=== PATIENT | female | born 1980 | race Caucasian/White ===

== ENCOUNTER 2017-06-06 06:46 | Day surgery (SDC) | payer MEDICAID ==
[2017-06-06] VITALS (12 sets, daily range): BP systolic 105–122; BP diastolic 65–78; PULSE 80–99; RESP 13–24; Ht 157.5 cm; Wt 75.0 kg
[~2017-06-06] VITALS: Ht 157.5 cm; Wt 75.0 kg
[2017-06-06] MEDS ORDERED: SEVOFLURANE 15 MIN ONE (07:00)
[2017-06-06] MEDS ORDERED: SUCCINYLCHOLINE CHLORIDE 100 MG/5 ML SYG IV ONE (12:54)
[2017-06-06] MEDS ORDERED: FENTAnyl 50 MCG/ML VIAL ONE (12:54)
[2017-06-06] MEDS ORDERED: PROPOFOL 20 ML ONE (12:54)
[2017-06-06] MEDS ORDERED: ROCURONIUM 50 MG INJ ONE (12:54)
[2017-06-06] MEDS ORDERED: METOCLOPRAMIDE 10 MG INJ ONE (12:55)
[2017-06-06] MEDS ORDERED: ONDANSETRON 4 MG INJ ONE (12:55)
[2017-06-06] MEDS ORDERED: FENTAnyl 50 MCG/ML VIAL IV PRN ×2 (14:00)
[2017-06-06] MEDS ORDERED: MEPERIDINE 25 MG INJ IV PRN (14:00)
[2017-06-06] MEDS ORDERED: ONDANSETRON 4 MG INJ IV PRN (14:00)
[2017-06-06] MEDS ORDERED: HYDROmorphONE (0.2 MG/ML) 10ML SYG IV PRN ×2 (14:00)
--- NOTE | 2017-06-06 14:20 | SIPON ---
Date/Time of Note Date/Time of Note DATE: 06/06/17 TIME: 14:12 Operative Report Preoperative Diagnosis Bilateral breast papillomas Postoperative Diagnosis Same Operation/Procedure Performed Bilateral needle localization partial mastectomies Surgeon: MARIE EMMANUEL MD doctor's assistant: LUZ MARIA MELO MD Anesthesia Type: general Estimated Blood Loss: 10 - 50 ml's Transfusion Required: no Specimens Bilateral breast specimens Grafts/Implants: none Complications: no MARIE EMMANUEL MD Jun 06, 2017 14:20
[2017-06-06] MEDS ORDERED: HYDROCODONE/APAP (7.5/325) TAB PO PRN (14:30)
[2017-06-06] MEDS: HYDROmorphONE (0.2 MG/ML) 10ML SYG IV PRN ×2 (14:55→15:01)
--- NOTE | 2017-06-06 16:16 | OPR ---
DATE OF OPERATION: 06/06/2017 PREOPERATIVE DIAGNOSIS: Bilateral breast papillomas. POSTOPERATIVE DIAGNOSIS: Bilateral breast papillomas. PROCEDURE: Bilateral needle-directed partial mastectomies. ANESTHESIA: General. ANESTHESIOLOGIST: Mracial Dasilva MD SURGEON: Shay Varner MD TIPPLE REPAIRER: Nilton Hernández MD INDICATIONS FOR PROCEDURE: Patient is a 36-year-old female who underwent a screening ultrasound as she had palpable mass and subsequent mammography. She was found to have bilateral lesions suspicious for intraductal papilloma. Bilateral breast biopsy confirmed the diagnoses, and based on the risk for underlying malignancy the patient was recommended to have surgical excision of both lesions. She consented and was scheduled for surgery. DESCRIPTION OF PROCEDURE: On the morning of surgery, patient presented to [facility], where she underwent localization of the lesions performed by attending [facility] radiologist, Dr. Ulisses Melo. Subsequently, she was brought to the operating theater, placed under general anesthesia. The breasts were prepped and draped in the usual sterile fashion bilaterally. Attention was first directed to the right side. Periareolar incision was made from approximately the 7 o'clock location through the 9 o'clock location to the 11 o'clock location. Subcutaneous tissue was dissected with cautery. Skin edges were elevated with skin hooks, and wide circumferential dissection of the tissue associated with the wire then took place, taking care to ensure adequate margin. Specimen was elevated, transected, oriented and sent for radiographic confirmation of capture. Capture was confirmed. Specimen was then sent for permanent pathologic analysis. The wound was irrigated. Minimal bleeding was controlled with cautery, and the skin was then reapproximated with a 4-0 Vicryl suture in subcuticular fashion. At this point, attention was then directed to the left breast. Again, a periareolar incision was made from approximately the 7 o'clock to the 11 o'clock location. Subcutaneous tissue was dissected with cautery. The skin edges were elevated with skin hooks. Wide circumferential dissection of the tissue associated with wire took place. Specimen was elevated, transected, oriented and sent for radiographic confirmation of capture of the specimen. Capture was confirmed. Specimens were then sent for permanent pathologic analysis. The wound was irrigated. Minimal bleeding was controlled with cautery. The skin was reapproximated with 4- 0 Vicryl sutures in subcuticular fashion. Dermabond was applied to both incisions. The patient tolerated the procedure well. ESTIMATED BLOOD LOSS: Total blood loss was approximately 30 mL. There were no complications, and the patient was transported in stable condition to recovery room, where a circumferential compression dressing was applied. Dictated By: Shay Varner MD /[email or web address] /Document#: [id number]
== END 2017-06-06 18:24 | disposition home or self-care (01) ==
LOC: SDS 06:46
PROVIDERS: ATTEND Surgery Surgical Oncology
DX: D24.1 Benign neoplasm of right breast (principal); N60.22 Fibroadenosis of left breast; N60.12 Diffuse cystic mastopathy of left breast; E03.9 Hypothyroidism, unspecified
CPT/HCPCS: 19301; 84703; 88307; J1170; J2405; J2765; J3010; Z7512; Z7610; J7999